=== PATIENT | female | born 1930 | race Hispanic/Latino ===

== ENCOUNTER 2018-10-06 09:47 | Day surgery (SDC) | payer MEDICARE ==
[2018-09-30 09:37] VITALS: BMI 28.8
[2018-10-06 10:11] LABS: BASO # 0.07 K/mm3 (0.0-2.0); BASO % 0.6 % (0.0-3.0); EOS # 0.2 (0.0-0.7); EOS % 1.9 % (1.5-5.0); HEMOGLOBIN 13.9 g/dL (12.0-16.0); LYMPH # 3.2 (1.2-3.4); MEAN CORPUSCULAR HEMOGLOBIN 28.9 pg (25.0-35.0); MEAN CORPUSCULAR HGB CONC 32.5 g/dl (31.0-37.0); MONO # 1.2 (0.1-0.6); MONO % 9.3 % (1.0-6.0); RBC 4.81 10^6/uL (3.5-6.1); RED CELL DISTRIBUTION WIDTH 13.5 % (11.5-14.5); WHITE BLOOD COUNT 12.4 10^3/uL (4.5-11.0)
[2018-10-06 10:19] LABS: BLOOD UREA NITROGEN 24 mg/dL (7-21); CALCIUM 10.8 mg/dL (8.4-10.5); GFR NON-AFRICAN AMERICAN > 60
[2018-10-06 10:23] LABS: INR 1.03; PARTIAL THROMBOPLASTIN TIME 40.7 Seconds (26.9-38.3); PROTHROMBIN TIME 11.6 SECONDS (9.4-12.5)
[2018-10-06] MEDS ORDERED: Lidocaine 1% Inj (20ml) ONE (12:53)
[2018-10-06] MEDS ORDERED: Midazolam 2 MG/2 ML VIAL ONE (13:52)
[2018-10-06] MEDS ORDERED: Midazolam 2 MG/2 ML VIAL IVP ONE (14:40)
[2018-10-06] MEDS ORDERED: Sodium Chloride 0.45% 1,000 ML IV SCH (15:00)
--- NOTE | 2018-10-06 15:51 | RAD ---
Date of service: 10/06/2018 HISTORY: rt lung bx COMPARISON: No prior. FINDINGS: LUNGS: No infiltrate. Approximately 4.8 cm vaguely rounded mass lateral to the right hilum. No other mass is identified. PLEURA: No significant pleural effusion identified, no pneumothorax apparent. CARDIOVASCULAR: No aortic atherosclerotic calcification present. Normal cardiac size. No pulmonary vascular congestion. OSSEOUS STRUCTURES: No significant abnormalities. VISUALIZED UPPER ABDOMEN: Normal. OTHER FINDINGS: None. IMPRESSION: 4.8 cm mass mid right lung. No pneumothorax status post percutaneous biopsy.
[2018-10-06 15:54] VITALS: TEMP 98
[2018-10-06 16:52] VITALS: BP 150/55; PULSE 73; RESP 18; O2SAT 94
--- NOTE | 2018-10-06 20:32 | CT ---
PROCEDURE: CT guided right lower lobe biopsy. HISTORY: 2.5 cm right lower lobe peripheral opacity. Positive PET. Previous smoker 40 years ago. Evaluate for malignancy PHYSICIAN(S): Waqas Davey MD. TECHNIQUE: The relative risks and indications of the procedure were explained to the patient and consent obtained. The patient was placed prone on the CT scanner and preliminary images through the lower lungs obtained. Conscious sedation and monitoring were provided throughout the procedure by a nurse. There is a 2.5 cm poorly defined opacity in the peripheral aspect of the right lower lobe posterior laterally.. A posterior approach was selected and the area prepped and draped in the usual sterile fashion. 1% Xylocaine was used to anesthetize the skin and soft tissues. A 19 gauge guiding needle was advanced into the 0.5 cm peripheral opacity in the right lower lobe. Its position was confirmed with CT. Using coaxial technique, multiple core biopsies were obtained. The postprocedure images show no evidence of large pneumothorax or significant hemorrhage.. IMPRESSION: 1. CT-guided right lower lobe lung biopsy as described above.
== END 2018-10-06 16:50 | disposition home or self-care (01) ==
LOC: SDS 09:47
PROVIDERS: ATTEND Radiology Vascular & Interventional Radiology
DX: C34.31 Malignant neoplasm of lower lobe, right bronchus or lung (principal); I10 Essential (primary) hypertension; E11.51 Type 2 diabetes mellitus with diabetic peripheral angiopathy without gangrene; Z87.891 Personal history of nicotine dependence
CPT/HCPCS: 32405; 36415; 71045; 77012; 80048; 85025; 85610; 85730; 88305; J2250; J2405; J3010; J7030